=== PATIENT | female | born 1955 | race Caucasian/White ===

== ENCOUNTER 2017-11-12 11:04 | Emergency (ER) | payer OTHER, SELFPAY ==
[2017-11-12 11:12] VITALS: BP 169/92; PULSE 60; RESP 20; TEMP 36.4; O2SAT 98; BMI 26.6
[2017-11-12 11:13] VITALS: BP 169/92; PULSE 60; RESP 15; TEMP 36.4; O2SAT 98
[2017-11-12 12:06] VITALS: BP 131/74; PULSE 62; RESP 21; O2SAT 100
--- NOTE | 2017-11-12 12:37 | RT ---
Spoke with Nurse Masha and Abby about tardiness of EKG, as I did not get a call for EKG. Saw EKG order on [facility]. EKG done at 1228, given to WILFRED Lee
[2017-11-12] MEDS: SODIUM CHLORIDE 0.9% 1,000 ML 1000 ML IV (12:40)
[2017-11-12] MEDS: ONDANSETRON 4 MG/2 ML INJ IV (12:40)
[2017-11-12 12:54] LABS: Add Manual Diff / Slide Review NO; Basophils Percent Auto 0.7 % (0-2); Eosinophils Percent Auto 2.8 % (2-4); Hematocrit 40.2 % (36-46); Hemoglobin 13.8 g/dL (12.0-16.0); Lymphocytes Percent Auto 30.7 % (25-40); Mean Corpuscular HGB Conc 34.2 % (30-36); Mean Corpuscular Volume 96.3 fL (80-100); Monocytes Percent Auto 6.3 % (3-14); Neutrophils Absolute Auto 2700 /uL (3000-5900); Neutrophils Percent Auto 59.5 % (50-75); Platelet Count 209 X10^3/uL (150-400); Red Blood Cell Count 4.18 X10^6/uL (4.0-5.2); Red Cell Distribution Width 12.9 % (11.6-14.8); White Blood Cell Count 4.5 X10^3/uL (4.5-11.0)
[2017-11-12 13:00] LABS: Alanine Aminotransferase 26 IU/L (9-52); Albumin 4.4 g/dL (3.5-5.0); Albumin Globulin Ratio 1.7 (1.0-2.8); Alkaline Phosphatase 74 U/L (38-126); Aspartate Aminotransferase 25 IU/L (14-36); Bilirubin Total 0.6 mg/dL (0.2-1.3); Blood Urea Nitrogen 20 mg/dL (7-17); Calcium 9.5 mg/dL (8.4-10.2); Carbon Dioxide 28 mmol/L (22-32); Chloride 103 mmol/L (98-107); Creatine Kinase 64 U/L (30-135); Estimated Glomerular Filt Rate > 60.0 mL/min (>60); Globulin 2.6 g/dL (1.7-4.1); Glucose 130 mg/dL (80-110); HEMOLYSIS < 15 (0-50); Potassium 4.3 mmol/L (3.4-5.1); Sodium 140 mmol/L (137-145)
[2017-11-12 13:12] LABS: Troponin I < 0.012 ng/mL (0.01-0.034)
[2017-11-12 13:23] VITALS: BP 138/74; PULSE 57; RESP 16; O2SAT 100
[2017-11-12 14:14] VITALS: BP 131/73; PULSE 62; RESP 19; O2SAT 95
--- NOTE | 2017-11-12 14:30 | ED.HA ---
HPI - Headache General Chief Complaint: Headache Stated Complaint: Faint, headache Time Seen by Provider: 11/12/17 12:39 Source: patient and family Mode of arrival: ambulatory Limitations: no limitations History of Present Illness HPI Narrative: Patient states she was sitting at the computer this morning, when she began to feel faint. Patient states this is very unusual for her, and that she is generally strong and healthy. Patient's states that the patient ?never gets sick?. She has horses and cares for them on a daily basis. Patient states that after onset of symptoms, she tried to get up from the computer but felt as though she would faint if she did and so she sat back down. Patient was ultimately able to get up and get something to eat and lay on the couch. Patient's became concerned when the patient had not joined him outside to take care of the horses after a number of minutes went by, and he came in to check on her, and found her laying on the couch. Patient states she developed a headache at that point in time. She states the headache was generalized. At this point, the decision was made to come to the emergency department. Patient states that her father and brother had MIs, but that she has never been found to have any cardiac disease. She states her mother did not have coronary artery disease as far she knows. Patient denies any chest pain or shortness of breath with exertion. No recent illness. No nausea, vomiting, diaphoresis, urinary symptoms, diarrhea, cough, or fever. Patient states that now, she is feeling much better, and no longer has any lightheadedness. She does note a mild headache. No focal neurologic deficits at any time. Onset description: gradual Location: diffuse Severity: moderate Severity scale (1-10): 4 Quality: throbbing and other (Patient states she does not really get headaches usually.) Relieving factors: nothing Exacerbating factors: none Context: occurred at rest Associated symptoms: lightheadedness Other symptoms: other (None) Treatments prior to arrival: none Related Data Home Medications Medication Instructions Recorded Confirmed multivitamin [Multiple Vitamins] 1 tab PO QDAY #0 12/03/16 11/12/17 Estroven 1 dose PO DIRECTED 11/12/17 11/12/17 Tums 1 tab PO DAILY 11/12/17 11/12/17 Vitamin D3 1 tab PO DAILY 11/12/17 11/12/17 biotin 1 tab PO DAILY 11/12/17 11/12/17 naproxen sodium [Aleve] 1 tab PO PRN PRN 11/12/17 11/12/17 Allergies Allergy/AdvReac Type Severity Reaction Status Date / Time No Known Allergies Allergy Uncoded 05/22/17 11:48 Review of Systems Review of Systems All systems reviewed & are unremarkable except as noted in HPI and below Constitutional Denies chills, Denies fever(s), Reports headache(s), Denies lethargy and Denies weakness Comments: Lightheadedness Eyes Denies change in vision, Denies eye discharge, Denies irritation and Denies loss of vision ENT Ears, Nose, Mouth, and Throat: Denies change in voice, Reports headache(s), Denies neck pain and Denies sore throat Cardiovascular Denies chest pain, Denies irregular heart rhythm, Reports lightheadedness, Denies palpitations, Denies dyspnea, Denies dyspnea on exertion and Denies orthopnea Respiratory Denies cough, Denies dyspnea, Denies dyspnea on exertion and Denies wheezing Gastrointestinal Gastrointestinal: Denies abdominal pain, Denies change in bowel habits, Denies diarrhea, Denies nausea and Denies vomiting Genitourinary Denies hematuria, Denies flank pain, Denies urinary incontinence and Denies urinary urgency Musculoskeletal Denies neck pain Integumentary/Breasts Denies pruritus, Denies erythema, Denies rash and Denies wounds Neurologic Denies confusion, Reports headache(s), Denies loss of vision and Denies weakness Psychiatric Denies anxiety, Denies confusion, Denies depression, Denies homicidal ideation and Denies suicidal ideation Endocrine Denies palpitations Hematologic/Lymphatic Denies easy bruising Allergic/Immunologic Denies wheezing PFSH Medical History Healthy adult (Acute) Surgical History No pertinent past surgical history (Acute) Social History Smoking Status: Never smoker Exam Initial Vital Signs Initial Vital Signs: Vital Signs Temperature 97.5 F L 11/12/17 11:12 Pulse Rate 60 11/12/17 11:12 Respiratory Rate 20 11/12/17 11:12 Blood Pressure 169/92 H 11/12/17 11:12 Pulse Oximetry 98 11/12/17 11:12 Const General: cooperative and well developed Nutritional Appearance: well nourished Orientation: alert, awake, oriented x3 and not confused [facility] Head: normocephalic and atraumatic Ears: external ears normal Nose: external nose normal and No nasal discharge Face and sinus: face symmetric and No dry mucous membranes Mouth: oral mucosae normal and moist mucous membranes Teeth and gingiva: dentition normal Eyes General: appearance normal, both eyes and all related structures Eyelids: eyelids normal Conjunctivae: conjunctivae normal Sclera: sclerae normal Pupils: PERRL EOM: EOM intact bilaterally Neck Neck: normal visual inspection, trachea midline, No lymphadenopathy, No midline deformity and No JVD Lymphatic: No lymphedema Chest Chest: normal inspection of the chest Resp Effort & Inspection: normal respiratory effort, able to speak in complete sentences, no respiratory distress and no use of accessory muscles Auscultation: clear to auscultation bilaterally, no rales, no rhonchi and no wheezes Cardio Rate: regular rate Rhythm: regular rhythm Heart Sounds: no click, no gallops, no murmurs and no rubs Pulses: normal peripheral pulses GI Inspection: non-distended Palpation: soft, no hepatosplenomegaly, No guarding, No pulsatile mass and No tender Auscultation: normal bowel sounds Back/Spine/Pelvis Back: No CVA tenderness Cervical Spine: cervical ROM normal and No pain with cervical ROM Thoracic/Lumbar Spine: thoracic and lumbar spine normal to inspection Skin General: no rashes or lesions noted, No jaundice and No petechiae Neuro General: alert, oriented x3, gait normal and no focal motor deficits Speech: speech normal Extrem General: full ROM, no clubbing, cyanosis or edema, no pedal edema and no calf tenderness Psych Appearance: well kempt Mental Status: mental status grossly normal Attitude: cooperative Thought Content: normal and suicidality Judgment: judgment good Course Course Narrative: Patient was treated with IV fluids and worked up with laboratory studies and EKG, which were unremarkable other than a mildly elevated TSH. This had been added after the patient mentioned late in the visit that she had had a short period of hypothyroidism, after which her TSH had normalized. As such, she has not been on medication for years. She has not had her thyroid checked recently, however so I did tell her that I would add a TSH to the blood that is already in the lab. Patient requested to be able to go home and have her primary care physician follow up on the results of the TSH, which I felt was reasonable. I did discuss with the patient the importance of following up for stress test, given the family history she has. The patient herself, other than age, is quite low risk for coronary artery disease, but her family history does increase her her risk somewhat. Patient expresses understanding of the need for follow-up, and states she will see her primary care physician as soon as possible. Orders Ordered: Discontinued Medications Sodium Chloride (Normal Saline 0.9%) 1,000 mls @ 1,000 mls/hr IV BOLUS ONE Stop: 11/12/17 13:38 Last Infusion: 11/12/17 14:26 Dose: 0 mls/hr Admin: 11/12/17 12:40 Dose: 1,000 mls/hr Ondansetron HCl (Zofran) 4 mg IV NOW ONE Stop: 11/12/17 12:40 Last Admin: 11/12/17 12:40 Dose: 4 mg Vital Signs - 8 hr 11/12/17 11:12 11/12/17 11:13 11/12/17 12:06 Temperature 97.5 F L 97.5 F L Pulse Rate 60 60 62 Respiratory Rate 20 15 21 Blood Pressure 169/92 H Blood Pressure [Right Arm] 169/92 H 131/74 Pulse Oximetry 98 98 100 11/12/17 13:23 11/12/17 14:14 Temperature Pulse Rate 57 L 62 Respiratory Rate 16 19 Blood Pressure Blood Pressure [Right Arm] 138/74 131/73 Pulse Oximetry 100 95 MDM - Headache Medical Records Attestation: I reviewed the patient's medical records. Lab Data Attestation: I reviewed the patient's lab results. Result diagrams: 11/12/17 12:20 11/12/17 12:20 Lab Results 11/12/17 11/12/17 11/12/17 Range/Units 12:20 12:20 12:20 WBC 4.5 (4.5-11.0) X10^3/uL RBC 4.18 (4.0-5.2) X10^6/uL Hgb 13.8 (12.0-16.0) g/dL Hct 40.2 (36-46) % MCV 96.3 (80-100) fL MCH 33.0 (26-34) PG MCHC 34.2 (30-36) % RDW 12.9 (11.6-14.8) % Plt Count 209 (150-400) X10^3/uL Neut % (Auto) 59.5 (50-75) % Lymph % (Auto) 30.7 (25-40) % [place] % (Auto) 6.3 (3-14) % Eos % (Auto) 2.8 (2-4) % Baso % (Auto) 0.7 (0-2) % Neut # (Auto) 2700 L (6727-4614) /uL Sodium 140 (137-145) mmol/L Potassium 4.3 (3.4-5.1) mmol/L Chloride 103 (98-107) mmol/L Carbon Dioxide 28 (22-32) mmol/L BUN 20 H (7-17) mg/dL Creatinine 0.80 (0.52-1.04) mg/dL Estimated GFR > 60.0 (>60) mL/min BUN/Creatinine Ratio 25.0 H (6-22) Glucose 130 H (80-110) mg/dL Calcium 9.5 (8.4-10.2) mg/dL Total Bilirubin 0.6 (0.2-1.3) mg/dL AST 25 (14-36) IU/L ALT 26 (9-52) IU/L Alkaline Phosphatase 74 (38-126) U/L Total Creatine Kinase 64 (30-135) U/L CK-MB (CK-2) TNP CK-MB (CK-2) Rel Index TNP Troponin I < 0.012 (0.01-0.034) ng/mL Total Protein 7.0 (6.3-8.2) g/dL Albumin 4.4 (3.5-5.0) g/dL Globulin 2.6 (1.7-4.1) g/dL Albumin/Globulin Ratio 1.7 (1.0-2.8) TSH 5.66 H (0.47-4.68) uIU/mL ECG Data Attestation: I personally reviewed and interpreted this ECG as follows: (See below) Interpretation: Twelve lead EKG performed on November 12, 2017 at 11:12 a.m.. Regular ventricular rhythm with a rate of 59 beats per minute MS interval 139 milliseconds QRS duration 92 milliseconds QTC interval 424 milliseconds No ectopy Interpretation: Sinus bradycardia; borderline EKG as interpreted by the ED MD Discharge Plan Departure Patient Disposition: Home Clinical Impression: Near syncope, Headache Discharge Date/Time: 11/12/17 14:50 Interventions: ED Discharge Assessment Last Done: 11/12/17 14:49 Prescriptions: No Action multivitamin [Multiple Vitamins] 1 EACH tablet 1 tab PO QDAY Qty: 0 RF: 0 naproxen sodium [Aleve] 220 mg Tablet 1 tab PO PRN PRN (Reason: Back Pain) RF: 0 biotin 1,000 mcg Tablet,Chewable 1 tab PO DAILY RF: 0 Estroven 1 dose PO DIRECTED RF: 0 Vitamin D3 1 tab PO DAILY RF: 0 Tums 1 tab PO DAILY RF: 0 Referrals: Hernandez Aj MD [Primary Care Provider] -
[2017-11-12 15:18] LABS: Thyroid Stimulating Hormone 5.66 uIU/mL (0.47-4.68)
== END 2017-11-12 14:50 | disposition home or self-care (01) ==
PROVIDERS: Emergency Provider Emergency Medicine; Family Provider Family Medicine; PCP Family Medicine
DX: R55 Syncope and collapse (principal); R51 Headache
CPT/HCPCS: 36591; 80053; 82550; 84443; 84484; 85025; 93005; 96361; 96374; 99283; 99284; J2405

== ENCOUNTER → 2020-10-12 13:37 | Outpatient (CLI) | payer MEDICARE, OTHER, SELFPAY ==
--- NOTE | 2020-10-12 | DI.MRI.S_ITS ---
PROCEDURE: MR LUMBAR SPINE WO CON INDICATIONS: Spondylolisthesis lumbar region TECHNIQUE: Noncontrast sagittal T1 spin echo and T2 fast echo, sagittal STIR, axial T1 and T2 fast spin echo through the lumbar spine. In cases with scoliosis, additional coronal T2 fast spin echo may be performed. COMPARISON: [facility] [place], CR, XR LUMBAR SPINE WITH OLBIQUES PLUS FLEXION EXTENSION, 10/03/2020, 10:10. [facility] [place], MR, MR LUMBAR SPINE WO CON, 06/21/2015, 13:02. [facility] [place], MR, MR LUMBAR SPINE W&WO CON, 09/28/2016, 13:14. FINDINGS: Image quality: Excellent. Alignment and Curvature: There is normal bony alignment. Mild grade 1 anterolisthesis is seen at L4-L5. Bone Marrow: Marrow is of normal overall signal. No acute vertebral body compression fractures. Spinal Cord: Conus medullaris terminates at the L1 level. Visualized cord demonstrates normal signal and size. Paraspinous Soft Tissues: No paravertebral masses. T12-L1: Normal appearance. L1-L2: Moderate to severe loss of disc height and disc signal can be seen on the right side. Prominent endplate irregularity is seen. At least moderate facet hypertrophy is seen. Associated hypertrophy of the ligamentum flavum can be seen. There is moderate to severe bilateral neural foraminal narrowing seen, right worse than left. There is a degree of compression seen upon the exiting nerve roots. Moderate central canal narrowing is seen. These imaging findings have progressed compared to the prior study. L2-L3: At least moderate loss of disc height and disc signal can be seen, which is worst on the left. Moderate to prominent disc bulge is seen. At least moderate facet hypertrophy is seen. Prior right hemilaminectomy change can be seen. There is moderate to severe bilateral neural foraminal narrowing seen. There is a degree of compression seen upon the exiting nerve roots. Mild central canal narrowing is seen. The degenerative changes at this level are overall progressed compared to 2017. L3-L4: [id number] loss of disc height and disc signal can be seen on the left side. Mild to moderate disc bulge is seen, with a mild central disc protrusion. Prominent facet hypertrophy is seen. Prior right hemilaminectomy change is seen at this level. There is at least moderate right-sided and moderate to severe left-sided neural foraminal narrowing seen. Moderate central canal narrowing is seen. When comparison is made with the prior images, these findings are similar. L4-L5: Mild loss of disc height is seen. Loss of disc signal is seen. Postoperative changes are seen at this level, with right-sided pedicle screws and a vertical fixation roni. There is a disc spacer seen. Mild disc bulge is seen. Prominent facet hypertrophy is seen at this level. Apparent prior right hemilaminectomy change can be seen. There is moderate right-sided and [id number] left-sided neural foraminal narrowing seen. Moderate central canal narrowing is seen. When comparison is made with the prior images, these findings are similar. L5-S1: Moderate to severe loss of disc height is seen. There is a likely degree of vertebral body bridging seen anteriorly. Mild to moderate disc bulge is seen. Mild to moderate facet hypertrophy is seen. No significant neural foraminal or central canal narrowing can be seen. Stable from the prior study. IMPRESSION: Multiple levels of degenerative change are seen, which are worst at L1-L2 and L2-L3 compared to 2017. Multiple levels of postoperative change can be seen, with multiple levels of right hemilaminectomy. Fusion hardware can be seen at L4-L5. Dictated by: Michael Ang M.D. on 10/12/2020 at 15:42 Approved by: Michael Ang M.D. on 10/12/2020 at 15:51
== END ==
PROVIDERS: Family Provider Family Medicine; PCP Family Medicine; Referring Provider Physical Medicine & Rehabilitation Pain Medicine; Visit Provider Physical Medicine & Rehabilitation Pain Medicine
DX: M43.16 Spondylolisthesis, lumbar region (principal); M47.816 Spondylosis without myelopathy or radiculopathy, lumbar region; M47.817 Spondylosis without myelopathy or radiculopathy, lumbosacral region
CPT/HCPCS: 72148

== ENCOUNTER → 2021-02-09 13:50 | Outpatient (CLI) | payer MEDICARE, OTHER, SELFPAY ==
--- NOTE | 2021-02-09 | DI.MRI.S_ITS ---
PROCEDURE: MR HIP LT WO CON INDICATIONS: Unilateral primary osteoarthritis, left hip TECHNIQUE: Noncontrast coronal T1 spin echo and STIR through the bony pelvis. Coronal and axial T2 fast spin echo with fat saturation, sagittal T1 spin echo, and oblique axial T2 fast spin echo with fat saturation through the hip. COMPARISON: None. FINDINGS: Image quality: Degraded by right hip arthroplasty artifact. Bones and joints: Moderate left hip joint space narrowing and periarticular osteophyte formation. Small left hip joint effusion. Bone marrow of the pelvic ring and proximal femurs show normal signal throughout. No intraosseous lesions or fractures. No avascular necrosis of the femoral heads. The visualized lower lumbar spine appears normally aligned. Tendons and ligaments: The gluteus medius and minimus tendons appear intact, without associated muscle atrophy. Mild T2 signal elevation within and surrounding the femoral insertion of the left gluteus medius and minimus tendons. The nearby proximal iliotibial band also appears intact. The iliopsoas tendon appears intact, without adjacent bursal fluid collections or evidence for impingement syndrome. The origin of the hamstring tendon is intact at the ischial tuberosity, as well as the associated sacrotuberous ligament. The straight and reflected heads of the rectus femoris muscle origin appear intact. Mild T2 signal elevation within the conjoined tendon origin at the ischial tuberosity. The ligamentum teres appears intact where visualized. Labrum and cartilage: Diffuse tearing of the left hip labrum is present. There is a large paralabral cyst superiorly measuring roughly 23 mm transverse by 60 mm anteroposterior by 40 mm craniocaudal. Cartilage surface of the femoral head appears of normal thickness. The alpha angle of the femur is within normal limits at less than 55 degrees. Soft tissues: Visualized muscles demonstrate normal bulk and internal signal. Quadratus femoris muscle demonstrates no internal edema to suggest ischiofemoral impingement. The proximal sciatic neurovascular bundle appears normal adjacent to the hamstring tendons. No free pelvic fluid. Bladder wall thickness is normal. There are multiple uterine masses, largest of which is in the subserosal location on the right measuring roughly 40 mm diameter. Scattered low T2 intensity foci within the uterine parenchyma are present. There is a right adnexal cyst measuring roughly 49 mm diameter. IMPRESSION: 1. Left hip osteoarthritis with associated labral tearing and paralabral cyst. 2. Insertional tendinitis of the left gluteus medius and minimus tendon . 3. Mild left ischiitis. 4. Multiple uterine fibroids. 5. Right adnexal cyst. Initial further assessment with pelvic ultrasound is recommended. Dictated by: Magalis Benavides M.D. on 02/09/2021 at 14:52 Approved by: Magalis Benavides M.D. on 02/09/2021 at 14:59
== END ==
PROVIDERS: Family Provider Family Medicine; PCP Family Medicine; Referring Provider Physical Medicine & Rehabilitation Pain Medicine; Visit Provider Physical Medicine & Rehabilitation Pain Medicine
DX: M16.12 Unilateral primary osteoarthritis, left hip (principal); M76.02 Gluteal tendinitis, left hip; S73.102A Unspecified sprain of left hip, initial encounter; D25.2 Subserosal leiomyoma of uterus; N94.89 Other specified conditions associated with female genital organs and menstrual cycle; Z96.642 Presence of left artificial hip joint
CPT/HCPCS: 73721

== ENCOUNTER → 2021-03-10 08:34 | Outpatient (CLI) | payer MEDICARE, OTHER, SELFPAY ==
[2021-03-10 09:29] LABS: Add Manual Diff / Slide Review NO; Basophils Absolute Auto 0 /uL (0-100); Eosinophils Absolute Auto 200 /uL (0-450); Eosinophils Percent Auto 3.7 % (2-4); Hematocrit 39.5 % (36-46); Hemoglobin 13.5 g/dL (12.0-16.0); Lymphocytes Absolute Auto 1800 /uL (1100-4500); Mean Corpuscular HGB Conc 34.1 % (30-36); Mean Corpuscular Hemoglobin 33.1 PG (26-34); Mean Corpuscular Volume 97.2 fL (80-100); Monocytes Absolute Auto 400 /uL (0-900); Monocytes Percent Auto 8.4 % (3-14); Neutrophils Absolute Auto 2500 /uL (1500-7000); Neutrophils Percent Auto 50.9 % (50-75); Platelet Count 238 X10^3/uL (150-400); Red Blood Cell Count 4.07 X10^6/uL (4.0-5.2); Red Cell Distribution Width 12.4 % (11.6-14.8); White Blood Cell Count 4.9 X10^3/uL (4.5-11.0)
[2021-03-10 09:32] LABS: Hemoglobin A1C% w Est Avg Glu 5.4 % (4.0-6.0)
[2021-03-10 09:36] LABS: Blood Urea Nitrogen 26 mg/dL (7-17); Calcium 9.3 mg/dL (8.4-10.2); Carbon Dioxide 28 mmol/L (22-32); Chloride 107 mmol/L (98-107); Estimated Glomerular Filt Rate > 60.0 mL/min (>60); Glucose 95 mg/dL (80-110); HEMOLYSIS < 15 (0-50); Potassium 4.2 mmol/L (3.4-5.1); Sodium 138 mmol/L (137-145)
[2021-03-10 10:31] LABS: Appearance Urine UA CLEAR; Bilirubin Urine UA NEGATIVE (NEGATIVE); Color Urine UA YELLOW; Glucose Urine UA NEGATIVE (Negative); Ketones Urine UA NEGATIVE (NEGATIVE); Leukocyte Esterase Urine UA NEGATIVE (NEGATIVE); Nitrite Urine UA NEGATIVE (Negative); Occult Blood Urine UA TRACE-INTACT (Negative); Protein Urine UA NEGATIVE (Negative); Specific Gravity Urine UA 1.025 (1.000-1.035); Urobilinogen Urine UA 0.2 E.U./dL (0.2)
[2021-03-10 10:47] LABS: Bacteria Urine Many (>30); RBC Urine 0-1/HPF (0-5/HPF); Squamous Epithelial Cell Urine 1-5 /HPF (0-5/HPF); WBC Urine 5-10/HPF (0-5/HPF)
[2021-03-10 10:48] LABS: Culture Indicated Urine Specimen Cultured
== END ==
PROVIDERS: Family Provider Family Medicine; PCP Family Medicine; Referring Provider Orthopaedic Surgery; Visit Provider Orthopaedic Surgery
DX: Z01.818 Encounter for other preprocedural examination (principal); R73.9 Hyperglycemia, unspecified; Z01.812 Encounter for preprocedural laboratory examination; N39.0 Urinary tract infection, site not specified
CPT/HCPCS: 36415; 80048; 81001; 83036; 85025; 87077; 87086; 87186; 93005; 94060; 94726; 94729

== ENCOUNTER → 2021-03-13 07:40 | Outpatient (CLI) | payer MEDICARE, OTHER, SELFPAY ==
--- NOTE | 2021-03-13 | DI.US.S_ITS ---
PROCEDURE: US PELVIC COMPLETE INDICATIONS: RIGHT OVARIAN CYST TECHNIQUE: Real-time scanning was performed of the pelvic organs, with image documentation. Additional endovaginal scanning was necessary due to incomplete visualization of the adnexal and endometrial structures by transabdominal scanning. COMPARISON: [facility], US, US PELVIC+TRANSVAG, 10/06/2014, 12:56. FINDINGS: Uterus: Uterus is anteverted and normal in size at 10 x 6.8 x 4.6 cm. The endometrium measures 11.6 mm combined thickness. There is a right anterior subserosal fibroid seen that measures 3.8 x 3 9 cm. Ovaries: The right ovary measures 5 x 5.3 x 3.8 cm. There is either a right ovarian cyst or a right adnexal cyst that measures 4.6 x 1 cm. No suspicious features are seen. The left ovary is not well seen Other: No pathologic free abdominal or pelvic fluid. IMPRESSION: The endometrial stripe is abnormally thickened at 11.6 mm. Please consider endometrial hyperplasia versus endometrial neoplasm. Please correlate with postmenopausal bleeding. If clinically appropriate, please consider endometrial sampling. A right ovarian versus right adnexal cyst is seen that measures up to 5.1 cm. In a patient of this age, suspicion is raised for an indolent cystic neoplasm. 3.9 cm uterine fibroid seen, which measures slightly decreased in size compared to 2014. We strive to produce accurate, complete, and clear reports of imaging services. To assist us in improving patient care, this report was composed using standard report templates and voice recognition software. Therefore, it may contain abnormal punctuation, insertions and/or omissions. Occasional wrong-word or sound-alike substitutions may occur. Though we review the report and make efforts to correct it, we do recommend that the report be read carefully in proper context to recognize any text inaccuracies. Dictated by: Michael Ang M.D. on 03/13/2021 at 8:11 Approved by: Michael Ang M.D. on 03/13/2021 at 8:14
== END ==
PROVIDERS: Family Provider Family Medicine; PCP Family Medicine; Referring Provider Family Medicine; Visit Provider Family Medicine
DX: N83.201 Unspecified ovarian cyst, right side (principal); D25.2 Subserosal leiomyoma of uterus; R93.89 Abnormal findings on diagnostic imaging of other specified body structures
CPT/HCPCS: 76830; 76856

== ENCOUNTER → 2021-03-30 14:55 | Outpatient (CLI) | payer MEDICARE, OTHER, SELFPAY ==
[2021-03-30 17:57] LABS: Cancer Antigen 125 10.4 U/mL (0-35)
[2021-04-01 09:40] LABS: Human Epididymis Prot 4 67.8 pmol/L (0.0-96.5)
== END ==
PROVIDERS: Family Provider Family Medicine; PCP Family Medicine; Referring Provider Specialist; Visit Provider Specialist
DX: N83.201 Unspecified ovarian cyst, right side (principal)
CPT/HCPCS: 36415; 86304; 86305

== ENCOUNTER → 2021-05-08 09:57 | Outpatient (CLI) | payer MEDICARE, OTHER, SELFPAY ==
[2021-05-08 11:37] LABS: COVID19 -Nasal RAPID Negative (Negative)
== END ==
PROVIDERS: Family Provider Family Medicine; PCP Family Medicine; Visit Provider Family Medicine Sleep Medicine
DX: Z20.822 Contact with and (suspected) exposure to COVID-19 (principal)
CPT/HCPCS: 87635; C9803

== ENCOUNTER 2021-05-09 11:25 | Day surgery (SDC) | payer MEDICARE, OTHER, SELFPAY ==
[2021-05-02 12:46] VITALS: BMI 27.1
[2021-05-09] VITALS (15 sets, daily range): BP systolic 121–146; BP diastolic 65–94; PULSE 66–88; RESP 12–18; TEMP 36.1–36.9; O2SAT 95–100; BMI 27.1
--- NOTE | 2021-05-09 | DI.RAD.S_ITS ---
PROCEDURE: XR HIP W PEL IF DONE LT 2V INDICATIONS: Left Anterior Hip TECHNIQUE: Four intraoperative fluoroscopic spot view(s) of the hip acquired. COMPARISON: [facility], , HIP 2V RIGHT, 07/14/2006, 9:52. FINDINGS: Four intraoperative spot images demonstrate left hip arthroplasty hardware in expected location without unexpected fractures visible. IMPRESSION: 1. Expected intraoperative appearance of left hip arthroplasty. Dictated by: Umu Willis M.D. on 05/09/2021 at 17:51 Approved by: Umu Willis M.D. on 05/09/2021 at 17:52
--- NOTE | 2021-05-09 06:00 | DI.RAD.S_ITS ---
PROCEDURE: XR HIP W PEL IF DONE LT 2V INDICATIONS: XI TECHNIQUE: AP pelvis and lateral view of the left hip acquired. COMPARISON: [facility], [facility], XR HIP W PEL IF DONE LT 2V, 05/09/2021, 16:24. FINDINGS: Bones: Patient is status post left hip arthroplasty, with hardware components in expected positions. The hip joint appears congruent. The visualized bony structures appear intact. Pre-existing right hip arthroplasty hardware can be seen. Soft tissues: Overlying postoperative changes are noted. No suspicious soft tissue densities. IMPRESSION: Normal postoperative examination. Dictated by: Michael Ang M.D. on 05/09/2021 at 17:08 Approved by: Michael Ang M.D. on 05/09/2021 at 17:08
[2021-05-09] MEDS: ACETAMINOPHEN 325 MG TABLET 975 MG PO (11:50)
[2021-05-09] MEDS: CELECOXIB 200 MG CAPSULE PO (11:51)
[2021-05-09] MEDS: LACTATED RINGERS 1,000 ML 42 ML IV ×2 (11:53→16:31)
[2021-05-09] MEDS: VANCOMYCIN 1,000 MG/200 ML PIGGYBACK 200 MG IV (13:07)
--- NOTE | 2021-05-09 14:03 | PM.PREOP ---
Pre-operative Note COVID-19 COVID-19 status: Negative Interval Note History & Physical reviewed/Exam performed by Physician: Yes Changes to H&P: No
[2021-05-09] MEDS: CEFAZOLIN 2 GM/20 ML SYRINGE IV ×2 (14:25→20:09)
[2021-05-09] MEDS: TRANEXAMIC ACID 1,000 MG VIAL 2000 MG INJ ×2 (14:45→17:11)
--- NOTE | 2021-05-09 15:01 | SUR.OPER ---
Patient supine on padded [place] table, one arm on padded arm board at <90, other arm padded and secured with tape across patient's chest, both legs secured in padded traction boots and positioned per surgeon, padded post at patient's groin, pressure points checked and padded.
[2021-05-09] MEDS: BUPIVACAINE LIPOSOME 266 MG/20 ML VIAL INJ (15:07)
[2021-05-09] MEDS: BUPIVACAINE 0.25% (PF) 60 ML, EPINEPHrine 0.3 MG INJ (15:07)
[2021-05-09] MEDS: SODIUM CHLORIDE IRRIG SOLUTION 250 ML, POVIDONE-IODINE SPONGE STICKS 1 APPLIC IRR (15:08)
[2021-05-09] MEDS: HYDROMORPHONE 2 MG INJ IV ×4 (18:02→18:29)
[2021-05-09] MEDS: OXYCODONE/ACETAMINOPHEN 5/325 TABLET 1 TAB PO ×2 (18:03→18:27)
[2021-05-09] MEDS: ONDANSETRON 4 MG/2 ML INJ IV (18:31)
--- NOTE | 2021-05-09 18:45 | P.OP_ITS ---
Operative Date/Time/Diagnoses Date of procedure: 05/09/21 Time of procedure: 14:30 Pre-op diagnosis: left hip OA/AVN Post-op diagnosis: same Procedure & Clinicians Procedure: Left total hip arthroplasty anterior approach Same procedure as scheduled: Yes Indications: The patient has had progressively worsening left hip pain with radiographic changes consistent with arthritis. Non-operative management has failed and the patient has requested total hip replacement. The risks, benefits and alternatives to surgery were discussed with the patient prior to proceeding. Risks discussed included, but were not limited to, failure to relieve pain, leg length discrepancy, dislocation, stiffness, infection, nerve damage, deep venous thrombosis, pulmonary embolism, stroke, coma, heart attack, permanent paralysis and , as well as the potential need for eventual revision of the prosthetic. Surgeon: Cassie Antunez Chucking Machine Set Up Operator: Deidre Ambrose Anesthesia Type: Spinal Operative Notes Findings: severe left hip osteoarthritis Closure Type: primary Specimen(s): none sent Prosthetic devices, grafts, tissues, transplants, or devices: Antunez and nephew R3 52 mm cup, two 6.5 mm cancellous screws, neutral poly liner, size 7 standard offset anthology stem, 36 x -3 Oxinium head Applied: drain(s) Estimated Blood Loss (mL): 250 Blood products transfused: none Procedure in detail: The patient was brought to the operating room. Patient was carefully positioned in the supine position. Time-out was performed and antibiotics were given. Anesthesia was induced. She was positioned in the on the table in order to allow hyperextension of the hip. The left lower extremity was prepped and draped in a standard sterile fashion. An anterior left hip incision was made 1 fingerbreadth lateral to the anterior superior iliac spine and extended distally towards the greater trochanter. Dissection was carried out through skin and subcutaneous tissues. Superficial hemostasis was achieved. The fascia over the tensor fascia savage was defined and incised with a knife. Two Allis clamps were used to grasp the fascia. Tensor fascia savage was retracted laterally. A gelpi retractor was placed. Dissection was carried out down along the neck. The circumflex vessels were carefully identified and cauterized with the Aqua Mantis. There was good visualization of the femoral neck. A Cobra was placed superior to the neck and the gluteus fibers were carefully stripped from that superior aspect of the capsule. A 2nd retractor was placed along the inferior aspect of the neck. The rectus insertion along the capsule was partially released. A 3rd retractor that was then gently placed over the rim of the acetabulum under the rectus. Capsule was carefully incised and released from the intertrochanteric line circumferentially superior to the mid sagittal line and inferiorly to the mid sagittal line until the lesser trochanter was palpable. A tag stitch was placed both in the superior and inferior limb of the capsular insertion. Along the acetabulum capsule was also released up to the mid sagittal 12:00 position. A portion of the labrum was resected. A saw was used to perform an osteotomy at the level of the intertrochanteric line and the junction of the superior femoral neck leaving approximately 1 finger breath of residual inferior neck above the lesser trochanter. A 2nd cut was made along the femoral neck at the base of the head and a napkin ring of neck was removed. Corkscrew was placed in the femoral head and the head was removed without difficulty. Retractors were then repositioned around the acetabulum. Residual labrum was resected and additional osteophytes were removed. A reamer that was 4 mm below the templated size was placed by hand in the acetabulum and it was reamed to centralize the acetabulum. It was then reamed up to 2 under the templated size and fluoroscopy was brought in to confirm the position of the reaming and depth of reaming. I reamed 1 under the anticipated size. A trial cup was placed and noted that it was appropriately sized and fluoroscopy confirmed position and depth. The component was open and inserted without difficulty fluoroscopic imaging was used to confirm that the cup had been adequately seated and was well positioned. It was stabilized with 2 screws. She had a fairly soft acetabulum. Neutral poly liner was placed. The cup was tested and noted to be stable. Attention was then directed to the femur. The femur was gently hyperextended additional capsular release was performed as needed in order to allow adequate visualization of the proximal femur with elevation of the femur. Patient was placed in a hyperextended slightly adducted position with maximum external rotation. Box osteotome was used to check for any residual neck as well as sclerotic bone along the trochanter. Anthony pepper was placed in the femur. Additional broaching was performed. Canal finder was used to determine the alignment of the canal and position. Size 1 broach was placed. The canal was then appropriately broached up to the templated size as long as there was adequate stability of the broach and serial advancement of the broach without excessive impingement. Specific attention was directed at avoiding varus attempting to direct the distal aspect of the broach more anteriorly and avoiding excessive anteversion. Trial reduction showed acceptable range of motion, good stability, no posterior impingement, sabianist of leg length and appropriate lateral shuck. I also hyperflexed the hip and checked that there was no impingement anteriorly and there was good stability with flexion, adduction and internal rotation. Marcaine and Exparel were injected. The stem was placed without difficulty. Repeat trial reduction and x-ray showed acceptable overall position, length, and no evidence of the femoral fracture. Final head was placed. Wound was meticulously irrigated with normal saline. The hip was reduced and additional Exparel and Marcaine were injected. The capsule was closed with interrupted nonabsorbable sutures. The fascia of the tensor was closed with interrupted and running Vicryl. No drain was placed. Any tensor fascia savage muscle that appeared to be contused or injured which was a minimal amount was carefully resected. Capsule around the tensor was injected with Exparel and Marcaine. The skin was closed with barbed stitches for the subcutaneous tissue and skin. We also used surgical glue. The wound was dressed sterilely. Brief Betadine soak was also used and was meticulously irrigated with normal saline. Patient was transferred to recovery room in satisfactory condition. Complications: none Post-operative Condition: stable Disposition: Acute Care Plan for aftercare: The patient will be maintained on a standard total hip replacement protocol with weight bearing as tolerated and anterior hip precautions. The patient will receive Aspirin and sequential compression devices for DVT prophylaxis. The patient will be discharged home when safe for the home environment.
[2021-05-09] MEDS: LACTATED RINGERS 1,000 ML 125 ML IV (19:28)
--- NOTE | 2021-05-09 19:51 | PC.NURSE ---
Pt to room 211 at 1900 from PACU via bed. Pt is awake, alert, and oriented x 3. Pt's Spouse Jeff is at the bedside. Pt denies pain, nausea, or shortness of breath. Still has numbness to BLE. Scd's on and running. Bed alarm on for safety. Ice water given, Pt denies hunger at this time but is aware that if she would like anything to please let us know. Pt oriented to room, call light, bed controls, and tv controls. Pt agrees to call for assistance as needed and to not get up without help.
[2021-05-09] MEDS: IBUPROFEN 400 MG TABLET PO (20:09)
[2021-05-09] MEDS: ASPIRIN EC 81 MG TABLET PO (20:09)
[2021-05-09] MEDS: DOCUSATE 100 MG CAPSULE PO (20:09)
[2021-05-09] MEDS: ACETAMINOPHEN 325 MG TABLET 650 MG PO (20:09)
[2021-05-10] MEDS: IBUPROFEN 400 MG TABLET PO ×4 (01:01→13:10)
[2021-05-10 01:03] VITALS: BP 130/55; PULSE 79; RESP 14; TEMP 36.4; O2SAT 96
[2021-05-10] MEDS: OXYCODONE IR 5 MG TABLET PO ×3 (04:23→13:11)
[2021-05-10] MEDS: CEFAZOLIN 2 GM/20 ML SYRINGE IV (04:23)
[2021-05-10 04:32] VITALS: BP 117/61; PULSE 71; RESP 14; TEMP 36.9; O2SAT 98
[2021-05-10 05:15] LABS: Hematocrit 30.4 % (36-46); Hemoglobin 10.4 g/dL (12.0-16.0)
[2021-05-10 07:00] VITALS: BP 101/61; PULSE 69; RESP 19; TEMP 36.1; O2SAT 97
[2021-05-10] MEDS: CHOLECALCIFEROL (VITAMIN D3) 1,000 UNIT TABLET 1000 UNIT PO (08:30)
[2021-05-10] MEDS: ASPIRIN EC 81 MG TABLET PO (08:30)
[2021-05-10] MEDS: DOCUSATE 100 MG CAPSULE PO (08:31)
[2021-05-10] MEDS: MULTIVITAMIN 1 TABLET 1 TAB PO (08:31)
[2021-05-10] MEDS: ACETAMINOPHEN 325 MG TABLET 650 MG PO (08:31)
[2021-05-10] MEDS: PROGESTERONE, MICRONIZED 100 MG CAPSULE PO (08:31)
--- NOTE | 2021-05-10 09:26 | CM.DANOTE ---
DCP: Case received, EMR reviewed and met with patient. Introduced self and role. Was able to obtain information regarding patient's baseline activity level prior to her surgery. DCP assessment completed with information currently available. Patient is a 65 year old female who admitted yesterday morning to the care of the orthopedic team. PCP: Dr. Aj. Payer: confirmed: Medicare/[employer]. Patient came to the hospital via private vehicle for a surgical procedure. Patient had left total hip arthroplasty. She has history of unilateral primary osteoarthritis of the left hip. Met with patient in her room. She is pleasant, alert and oriented. She was sitting up in bed. Confirmed that she resides in [place] with her spouse, Jonathan. 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 Confirmed that her spouse will be able to assist her when she goes home. P: Patient has discharge orders for home today, pending working with PCharis Ingram RN/Crew Director Discharge Planning/Care Management CM Discharge Assessment Start: 05/10/21 09:25 Freq: Status: Active Protocol: Document 05/10/21 09:25 (Rec: 05/10/21 09:26 [id number]) Discharge Planning Assessment Assigned Wood Experimental Mechanic Agueda Ingram RN/Crew Director Advance Directives? Yes Advance Directives on File Yes History Provided By Patient,Significant Other, Medical Record Prior Living Arrangements House Household Members spouse Type of transporation used prior to Drives own vehicle admit Independent with ADL's Yes Is patient alert and oriented? Yes Caregiver for Another No Barriers to Discharge No Discharge Plan Home Transportation Arrangement Spouse Referrals Initiated None needed Whiteboard Updated in Patient Room with Yes name and ext. # of Wood Experimental Mechanic Review Status In Process Next Review Type Continued Stay Review Pre-Anesthesia Assessment Start: 05/02/21 12:46 Freq: Status: Active Protocol: Document 05/02/21 12:46 CAB (Rec: 05/02/21 13:14 CAB [id number]) Pre-Anesthesia Assessment Preferred Name Le Patient Information Reviewed Via Phone Assessment Assessment Completed With Patient Diagnostic Results BMP/CMP,CBC,EKG Comment Labs/ECG @ [facility] 03/10/21, COVID screen @ [facility] 05/08/21 Primary Care Provider Hernandez Aj Seen Specialist in Last 12 Months Yes Specialist Seen Fishing Vessel Operator,Orthopedist Primary Language Ghanaian Security Management Specialist Required No Height 5 ft 6 in Weight 168 lb Body Mass Index (BMI) 27.1 Hearing Ability Normal Visual Assist None Dentition Type Teeth, Natural Present Barriers to Learning None Hx Anesthesia Reactions No Hx Family Anesthesia Reaction No Hx Malignant Hyperthermia No Hx Blood Transfusions No Anesthesia Review Requested No alcohol intake current alcohol intake frequency 0-2 drinks per day Smoking Status Never smoker Substance Use Type does not use Pain Present Pain Reported Musculoskeletal Symptoms Abnormal Gait,Difficulty Walking,Joint Pain History of Falling (Recent or History of No ) Patient is completely paralyzed or No completely immobile Mental Status Oriented to own ability Is patient on oxygen? No Does patient have MCMANUS/SOB No Hx Sleep Apnea No Currently Taking a Beta Leeanne No Can You Climb a Flight of Stairs Without Yes SOB Hx Chest Pain No Hx SOB No Hx Syncope or Dizziness No Anti-Coagulant Therapy No Has a Towel Weaver No Cardiac Testing No Hx Pacemaker/ICD No Pacemaker Rep Required? No Cardiac Clearance Received Not Applicable Diet Type At Home Regular dysphagia No Gastrointestinal Symptoms Constipation Genitourinary Symptoms Non-Menses Vaginal Bleeding Urinary Catheter Present No Hx Urinary Self Catheterization No Diabetes No Patient No Lactating No Presence of External or Internal Medical Yes: Lumbar, right hip Devices Have you had any close contact with No someone diagnosed with COVID-19? Received a COVID vaccine? Yes Received all doses? Yes Marital Status Lives With spouse Prior Living Arrangements House Number of Floors (Floors) One Floor Support System Spouse Does the Patient Have Assistance After Yes Surgery Patient Discharge Plan Description Return Home Comment Pt advised possible same day surgery or overnight length of stay per surg Feels Safe in Current Environment Yes Been Physically Hurt or Threatened By a No Person in Current Environment Do you have thoughts of harming yourself None or others? Are you currently considering suicide? No Do you have a plan to hurt yourself or No Plan others? Do You Have Any Spiritual Beliefs That No May Affect Your HC Choices? Do You Have Any Cultural Practices That No May Affect Your HC Choices? Comment Latter Day Who Can We Speak to About Patient's Care Family, friends Identifying Code for Release of Patient Declines to issue Information Health Care Proxy/Next of Kin Jeff () Health Care Proxy Emergency Contact Name Jeff () Emergency Contact Advance Directives? Yes Power of Head Of Training And Development Yes Power of Head Of Training And Development Name Jeff () Power of Head Of Training And Development PAC Instructions Do not shave/clip surgical site,Durable medical equipment ,Medications to take/avoid, Nasal antibiotic,No ETOH/ petroleum product on skin DOS, NPO,Post-op transportation,Pre -surgical wash,Sensory aids, Sturdy shoes/comfortable clothes,Do not bring valuables and remove jewelry
--- NOTE | 2021-05-10 10:19 | P.DS_ITS ---
History of Present Illness History of Present Illness Date Patient Seen: 05/10/21 Time Patient Seen: 07:50 Chief complaint: hip pain Narrative: Doing well. Pain is mild. No fever or chills. Denies N/V. Discharge Providers Provider Discharge Date: 05/10/21 Primary care physician: Hernandez Aj MD Consults: 05/09/21 06:00 Consult to Anesthesiology Routine Comment: Consulting Provider: Anesthesiologist Reason for consultation: Regional block for post operative pain control 05/09/21 19:04 Consult to Discharge Planning Routine Comment: Consult to Physical Therapy Evaluate & Treat Comment: Physician Instructions: post op XI protocol Consult to Respiratory Therapy Evaluate & Treat Comment: Physician Instructions: Evaluate and treat Discharge provider: Armaan Justin PA-C Summary Hospital Course Discharge Diagnosis: Left hip OA/AVN Hospital Course: Procedure: Left total hip arthroplasty anterior approach Same procedure as scheduled: Yes Indications: The patient has had progressively worsening left hip pain with radiographic changes consistent with arthritis. Non-operative management has failed and the patient has requested total hip replacement. The risks, benefits and alternatives to surgery were discussed with the patient prior to proceeding. Risks discussed included, but were not limited to, failure to relieve pain, leg length discrepancy, dislocation, stiffness, infection, nerve damage, deep venous thrombosis, pulmonary embolism, stroke, coma, heart attack, permanent paralysis and , as well as the potential need for eventual revision of the prosthetic. Surgeon: Cassie Antunez Occupational Therapy Co Director: Deidre Ambrose Anesthesia Type: Spinal Operative Notes Findings: ?severe left hip osteoarthritis Closure Type: primary Specimen(s): none sent Prosthetic devices, grafts, tissues, transplants, or devices: Antunez and nephew R3 52 mm cup, two 6.5 mm cancellous screws, neutral poly liner, size 7 standard offset anthology stem, 36 x -3 Oxinium head Applied: drain(s) Estimated Blood Loss (mL): 250 Blood products transfused: none Admitted for left XI. Consented to the same. Underwent total hip, anterior approach on 05/09/21. Doing well s/p surgery. DC home today in stable conditon. Status at Discharge Cognitive/behavioral status at discharge: at baseline, oriented Functional status at discharge: uses cane/walker Overall status at discharge: patient is progressing back to baseline Exam Vital Signs (past 8 hours): - 05/10/21 04:32 05/10/21 07:00 Temperature 98.4 F 97.0 F L Pulse Rate 71 69 Respiratory Rate 14 19 Blood Pressure 117/61 101/61 Pulse Oximetry 98 97 Oxygen Delivery Method Room Air Oxygen Flow Rate 0 Narrative Exam Narrative: 65 yo resting comfortably in bed, NAD. Dressing CDI. Motor function intact bilat. LE, sensation grossly intact to light touch bilat. LE. Const General: cooperative Orientation: alert Resp Effort & Inspection: normal respiratory effort Objective Labs Result Diagrams: 05/10/21 05:00 Labs: Laboratory Results - last 24 hr 05/10/21 05:00 Hgb 10.4 L Hct 30.4 L PFSH Medical History Chronic back pain (~2014) Fibroids (~1989) Healthy adult Surgical History Anesthesia History of back surgery (~2015) History of carpal tunnel surgery History of section History of tonsillectomy (~1969) History of total right hip arthroplasty (~2016) No pertinent past surgical history Family History Father History of heart disease Hypertension Hyperlipidemia Mother History of heart disease Brother History of heart disease Sister Stroke Grandfather History of heart disease Grandmother History of heart disease Grandfather Cancer Grandmother Cancer Social History household members: spouse Smoking Status: Never smoker alcohol intake: current Discharge Assessment & Plan Assessment and Plan Assessment: Stable Plan of Treatment: Mobilize with PT Anterior hip precautions. DC home today after PT. Discharge Plan Discharge Plan Patient Disposition: Home Discharge orders & Medications Discharge Orders: Discharge (Order); Ordered 05/10/21 Ordered By: Armaan Justin Prescriptions: New oxycodone 5 mg Tablet 10 mg PO Q3HR PRN (Reason: Pain, Severe (7-10)) Qty: 60 0RF acetaminophen 325 mg Tablet 650 mg PO TID Qty: 60 0RF aspirin 81 mg Tablet,Delayed Release (Dr/Ec) 81 mg PO BID Qty: 60 0RF Continued multivitamin [Multiple Vitamins] 1 EACH tablet 1 tab PO QDAY Qty: 0 0RF estradiol 0.025 mg/24 hr patch weekly 1 patch transdermal QWEEK 0RF Label Comments: Weekly patch, on her right buttock progesterone micronized 100 mg capsule 100 mg PO QAM 0RF Rx Instructions: off 7 days; repeat cycle naproxen sodium [Aleve] 220 mg Tablet 1 tab PO PRN PRN (Reason: Back Pain) 0RF Label Comments: patient states takes about every 3 days cholecalciferol (vitamin D3) [Vitamin D3] 25 mcg (1,000 unit) Capsule 25 mcg PO DAILY 0RF biotin 1,000 mcg Tablet,Chewable 1 tab PO DAILY 0RF Discontinued acetaminophen 500 mg Tablet 1,000 mg PO BID PRN (Reason: Pain) 0RF Follow up/Referrals: Hernandez Aj MD [Primary Care Provider] - Cassie Antunez MD [Physician] - (2 wks) Diet/Activity/Treatments Activity: WBAT, anterior hip precautions. Cold/Heat Therapy: ice as needed Skin/Wound/Dressing Care Report to your healthcare provider any signs of infection, such as:: chills, f ever, increased pain, unusual drainage and unusual redness Dressing: keeps dressing clean and dry Visit Report/Discharge Packet Instructions: DI for Hip Replacement Stand Alone Forms: Surgery Discharge Discharge Data Primary Care Provider: Hernandez Aj Attending Provider: Cassie Antunez Quality VTE Deep Vein Thrombosis/Pulmonary Embolism Present on Admission: No
--- NOTE | 2021-05-10 10:31 | PT.IIE ---
Current Diagnoses Unilateral primary osteoarthritis, left hip (05/09/21) Surgery Performed Operation Date: 05/09/21 13:30 Actual Procedures p Total Hip Arthroplasty/Anterior Approach(Left) - Cassie Antunez MD Surgical History (Last Reviewed 05/10/21 @ 10:22 by Armaan Justin PA-C) Anesthesia History of total right hip arthroplasty (~2016) Medical History (Last Reviewed 05/10/21 @ 10:22 by Armaan Justin PA-C) Chronic back pain (~2014) Fibroids (~1989) Healthy adult Physical Therapy Inpatient Evaluation/Re-Eval M1 PT/OT-IP Prior Functional Status Start: 05/10/21 12:31 Freq: NEEDED Status: Active Protocol: Document 05/10/21 10:31 AB (Rec: 05/10/21 12:42 AB [id number]) Medical Review Prior Functional Status Medical History Reviewed Yes Communication able to make needs known Mobility and Gait pt stated that she is indpeendent with all mobilities and ambulation without AD Social History Household Members spouse Living Arrangements House Number of Floors (Floors) One Floor Number of Stairs To Enter/Railing? 1 step to enter Home Environment High Toilet,Walk in Shower Home Equipment Front Wheel Walker,Straight Cane,Shower Seat without Backrest,Hand Held Shower,Grab Bars In Shower Employment Status Retired M2 PT-IP Current Condition Start: 05/10/21 12:31 Freq: NEEDED Status: Active Protocol: Document 05/10/21 10:31 AB (Rec: 05/10/21 12:42 AB [id number]) Physical Therapy Current Condition Current Condition Evaluation Date 05/10/21 Treatment Diagnosis s/p L XI anterior approach; difficulty in walking Onset Date 05/09/21 M3 PT-IP Subjective Start: 05/10/21 12:31 Freq: NEEDED Status: Active Protocol: Document 05/10/21 10:31 AB (Rec: 05/10/21 12:42 AB [id number]) Subjective Physical Therapy Visit Type Type Initial Evaluation Visit Start Time 10:31 Visit Stop Time 11:16 Total Visit Minutes 45 Number of CLOTH PRESSER Visits 0 Physical Therapy Visit Comments Patient Comments agreeable to do PT Therapy Pain Assessment Pain When Pain Assessed At Rest Pain Present Pain Present Pain Reported Location Left Hip Intensity 5 Scale Used Numeric (0 - 10) Pain Management Techniques Distraction,Re-positioning, Timing of Activity with Medications M4 PT-IP Mobility and Gait Start: 05/10/21 12:31 Freq: NEEDED Status: Active Protocol: Document 05/10/21 10:31 AB (Rec: 05/10/21 12:42 AB [id number]) PT-Bed Mobility Assessment Supine to Sit Supine to Sit Standby Assistance Sit to Supine Sit to Supine Standby Assistance PT-Transfer Assessment Sit to and From Stand Sit to and from Stand Standby Assistance,Contact Guard Assistance,1 Person Assistance Equipment Transfer Assistive Device Gait Belt,Front Wheeled Walker Orthotic/Prosthetic Devices or Brace: No Transfers Transfer Destination Chair Transfer Technique ambulated Transfer Ability Level of Assist Standby Assistance,Contact Guard Assistance,1 Person Assistance,Use of Upper Extremities Comments Mobility Comments spouse in room with pt. educated pt and spouse regarding pt's anterior hip precautions. pt able to recall after education. completed supine to sit SBA. able to sit on EOB SBA. completed sit to stand CGA and cues. instructed pt to sit back down. educated on sit to stand techniques and pt completed again requiring CGA. pt repeated 2 more times. completed ambulation in room using FWW ~ 12 ft CGA. pt sat on chair. educated on stair climbing using FWW. pt completed sit to stand from chair SBA and ambulated out in the [facility] ~ 30 ft. completed up/down step using fWW and spouse providing assistance SBA to CGA. pt completed x 2 sets. pt ambulated 60 ft using FWW and then back to her room. sat on EOB. completed sit<> supine SBA and cues. educated on techniques. pt completed sit to stand SBA and transfer to chair sBA using fWW. pt and spouse without further concerns. pt requested to use the toilet. completed sit to stand SBA and ambulated to the toilet using FWW SBA. Left pt in room with spouse. informed nurse that pt is awaiting d/c. Gait Assessment Gait Gait Assistance Required: Standby Assistance,Contact Guard Assist Distance (Feet) 60 Assistive Devices Assistive Device Gait Belt,Front Wheeled Walker Orthotic/Prosthetic Devices or Brace: No Gait Deviations General Gait Pattern Decreased Stride Length, Decreased Feet Clearance Factors Limiting Gait Function Factors Limiting Gait Function Decreased Activity Tolerance, Decreased Strength,Limited Range of Motion,Pain,Poor Balance Stair Climbing Assessment Evaluation Level of Assist On Stairs Standby Assistance,Contact Guard Assistance,1 Person Assistance Devices Stair Climbing Assistive Devices Front Wheel Walker Technique/Endurance Stair Climbing Direction Ascend and Descend Stair Climbing Technique Step to Step Number of Steps Climbed 1 Query Text: Stair Climbing Set # Repetitions (reps) 2 PT-Balance Assessment Sitting Balance and Reactions Static Sitting Balance Ability Good Dynamic Sitting Balance Ability Good Standing Balance and Reactions Static Standing Balance Ability Fair Dynamic Standing Balance Ability Fair Device Used FWW M5 PT-IP Objective Assessments Start: 05/10/21 12:31 Freq: NEEDED Status: Active Protocol: Document 05/10/21 10:31 AB (Rec: 05/10/21 12:42 AB [id number]) Orientation Orientation/Cognition Level of Alertness Alert Orientation Name,Age,Birthday,Month,Date, Year,Day of Week,Place, Situation Language Function Ability No Deficits Noted Safety Awareness Understands Safety Issues Memory Description No Deficits Noted Gross Range of Motion Lower Extremity ROM Assessment Within Functional Limits Strength Lower Extremity Strength Assessment Left Impaired Hip 3+/5 Knee 4/5 Coordination Assessment Gross Coordination Gross Coordination WNL Sensation Assessment Sensation Gross Sensation WNL Muscle Tone Muscle Tone WNL Yes M6 PT-IP Treatment Start: 05/10/21 12:31 Freq: NEEDED Status: Active Protocol: Document 05/10/21 10:31 AB (Rec: 05/10/21 12:42 AB [id number]) Physical Therapy Treatment Education Education Provided Precautions,Weight Bearing Status,Post-Op Packet,Safety M7 PT-IP Assessment and Plan Start: 05/10/21 12:31 Freq: NEEDED Status: Active Protocol: Document 05/10/21 10:31 AB (Rec: 05/10/21 12:42 AB [email or web address]) PT Summary Assessment and Plan Potential Rehabilitation Potential Good Status of Condition at Evaluation Stable Summary Impairments Pain,ROM,Strength,Balance, Coordination,Sensation,Tone, Cognition,Bed Mobility, Transfers,Gait,Activity Tolerance Assessment Summary pt requiring SBA to CGA with mobility and plans to [facility] with spouse to assist her. pt stated that she has outpt scheduled. pt may go home when medically stable. Goals Bed Mobility Goal Independent Transfer Goal Independent,Front Wheeled Walker Gait Goal Independent,Front Wheel Walker Gait Distance 250 Other Goals up/down 1 step using FWW mod I Days to Meet Goals 3 Frequency of Treatment Frequency Of Treatment Twice a Day Treatment Plan Physical Therapy Treatment Plan Bed Mobility Training,Transfer Training,Gait Training, Therapeutic Exercise,Balance Retraining,Post Op Education, Discharge Planning,Hot or Cold Pack,Neuromuscular Re-ed, Coordination Retraining,Manual Therapy Precautions Anterior Hip Precautions No Hip Extension,No Hip External Rotation Weight Bearing Status Weight Bearing Status Weight Bear as Tolerated Allowed Weight Bearing Amount (enter % LLE WBAT or #) (%) Recommendations To Nursing Amount of Assist Needed Standby Assistance Discharge Recommendations PT Discharge Recommendations Home with Assistance, Outpatient PT Transportation Needs at Discharge Private Vehicle
[2021-05-10 11:00] VITALS: BP 111/58; PULSE 74; RESP 20; TEMP 36.8; O2SAT 98
--- NOTE | 2021-05-10 15:47 | PC.NURSE ---
Pt discharged at 1430, escorted off floor in wheelchair, accompanied by spouse and hospital staff. IV removed, discharged teaching completed including follow up appointments, new medications, and signs of infection. Questions answered. Pt left floor with all belongings.
== END 2021-05-10 14:30 | disposition home or self-care (01) ==
LOC: OR 11:26 → AC 11:27
PROVIDERS: Family Provider Family Medicine; PCP Family Medicine; Referring Provider Orthopaedic Surgery; Visit Provider Orthopaedic Surgery
PROC: (CPT 27130; principal; 2021-05-09 13:30)
DX: M16.12 Unilateral primary osteoarthritis, left hip (principal)
CPT/HCPCS: 27130; 36415; 73502; 76000; 85014; 85018; 97161; 97530; C1776; C9290; J0171; J0690; J1170; J2250; J2405; J2704; J3010

== ENCOUNTER → 2021-07-28 11:22 | Outpatient (CLI) | payer MEDICARE, OTHER, SELFPAY ==
[2021-05-09 19:30] VITALS: BMI 27.1
--- NOTE | 2021-07-28 11:23 | DI.US.S_ITS ---
PROCEDURE: US PELVIC COMPLETE INDICATIONS: FOLLOW UP OVARIAN CYST AND THICKENED ENDOMETRIUM TECHNIQUE: Real-time scanning was performed of the pelvic organs, with image documentation. Additional endovaginal scanning was necessary due to incomplete visualization of the adnexal and endometrial structures by transabdominal scanning. COMPARISON: [facility], US, US PELVIC COMPLETE, 03/13/2021, 8:08. FINDINGS: Uterus: Uterus is anteverted and normal in size at 10.4 x 7.9 x 6.5 cm. The myometrium is homogeneous. The endometrium measures 9.6 mm combined thickness. Ovaries: The right ovary measures 6.4 x 4.7 x 6.5 cm. The left ovary measures is not visualized. The ovaries have a normal sonographic appearance. Less than 12 follicles can be seen in each ovary. No adnexal masses are seen. There is an anechoic circumscribed right adnexal cyst which measures 5.1 x 3.7 x 4.6 cm. This measured 5.1 x 3.8 x 5.3 cm on the comparison ultrasound dated March 13, 2021. Other: No pathologic free abdominal or pelvic fluid. IMPRESSION: 1. Stable right adnexal cyst when compared with the study dated March 13, 2021. In a postmenopausal female, annual sonographic surveillance is recommended. 2. Abnormally thickened endometrium in a postmenopausal patient, as before. Differential considerations include hyperplasia and neoplasm. Endometrial biopsy recommended if not already performed. We strive to produce accurate, complete, and clear reports of imaging services. To assist us in improving patient care, this report was composed using standard report templates and voice recognition software. Therefore, it may contain abnormal punctuation, insertions and/or omissions. Occasional wrong-word or sound-alike substitutions may occur. Though we review the report and make efforts to correct it, we do recommend that the report be read carefully in proper context to recognize any text inaccuracies. Dictated by: Marj Verde M.D. on 07/28/2021 at 13:27 Approved by: Marj Verde M.D. on 07/28/2021 at 13:31
== END ==
PROVIDERS: Family Provider Family Medicine; PCP Family Medicine; Referring Provider Specialist; Visit Provider Specialist
DX: R93.89 Abnormal findings on diagnostic imaging of other specified body structures (principal); N83.201 Unspecified ovarian cyst, right side
CPT/HCPCS: 76830; 76856

== ENCOUNTER → 2022-01-26 14:53 | Outpatient (CLI) | payer MEDICARE, OTHER, SELFPAY ==
[2022-01-12 10:42] VITALS: BMI 27.1
[2022-01-26 16:40] LABS: COVID19 -Nasal RAPID Negative (Negative)
== END ==
PROVIDERS: Family Provider Family Medicine; PCP Family Medicine; Visit Provider Obstetrics & Gynecology
DX: Z01.812 Encounter for preprocedural laboratory examination (principal); Z20.822 Contact with and (suspected) exposure to COVID-19
CPT/HCPCS: 87635

== ENCOUNTER → 2022-02-08 11:48 | Outpatient (CLI) | payer MEDICARE, OTHER, SELFPAY ==
[2022-01-12 10:42] VITALS: BMI 27.1
[2022-02-08 12:28] LABS: COVID19 -Nasal RAPID Negative (Negative)
== END ==
PROVIDERS: Family Provider Family Medicine; PCP Family Medicine; Visit Provider Obstetrics & Gynecology
DX: Z01.812 Encounter for preprocedural laboratory examination (principal); Z20.822 Contact with and (suspected) exposure to COVID-19
CPT/HCPCS: 87635

== ENCOUNTER 2022-02-08 12:22 | Day surgery (SDC) | payer MEDICARE, OTHER, SELFPAY ==
[2022-01-12 10:42] VITALS: BMI 27.1
[2022-01-24 08:33] VITALS: BMI 28.2
--- NOTE | 2022-02-08 | PATH_ITS ---
[facility] Accession Number: [id number] . 01 Material submitted: . PART A: endometrium - ENDOMETRIAL POLYPOID TISSUE PART B: endometrium - ENDOMETRIAL CURETTINGS . 01 Diagnosis: A. Endometrial Polypoid Tissue, Biopsy: Fragments with features suggestive of endometrial polyp. Associated weakly proliferative endometrium present. Negative for atypia, hyperplasia or malignancy. . B. Endometrium, Curettings: Weakly proliferative endometrium with stromal breakdown. Negative for atypia, hyperplasia or malignancy. MRV 02/13/2022 1722 Local . 01 Electronically signed: . Maximus Ascencio MD, Pathologist NPI- [id number] . 01 Gross description: . Part A: ENDOMETRIAL POLYPOID TISSUE: Received in formalin are minute fragments of mucoid and hemorrhagic material measuring 2.0 x 0.6 x 0.1 cm in aggregate. Submitted in toto in 1 cassette. Part B: ENDOMETRIAL CURETTINGS: Received in formalin are minute fragments of mucoid and hemorrhagic material measuring 2.5 x 1.2 x 0.1 cm in aggregate. Submitted in toto in 1 cassette. /CPE 02/09/2022 0532 Local . 01 Pathologist provided ICD-10: N95.0 . 01 CPT . 777175, [id number] Specimen Comment: A courtesy copy of this report has been sent to [facility] Performed at: 01 [facility] [address] [place] [address], [place], [place] [id number] MD Asher Rebolledo MD Phone: [phone]
[2022-02-08 13:19] VITALS: BP 161/78; PULSE 72; RESP 16; TEMP 36.2; O2SAT 100; BMI 28.2
[2022-02-08] MEDS: LACTATED RINGERS 1,000 ML 100 ML IV (13:25)
[2022-02-08 13:27] LABS: Add Manual Diff / Slide Review NO; Basophils Absolute Auto 100 /uL (0-100); Basophils Percent Auto 1.1 % (0-2); Eosinophils Absolute Auto 200 /uL (0-450); Eosinophils Percent Auto 2.9 % (2-4); Hematocrit 40.1 % (36-46); Hemoglobin 13.9 g/dL (12.0-16.0); Lymphocytes Absolute Auto 2000 /uL (1100-4500); Lymphocytes Percent Auto 36.1 % (25-40); Mean Corpuscular HGB Conc 34.6 % (30-36); Mean Corpuscular Hemoglobin 33.7 PG (26-34); Mean Corpuscular Volume 97.3 fL (80-100); Monocytes Absolute Auto 400 /uL (0-900); Monocytes Percent Auto 7.2 % (3-14); Neutrophils Absolute Auto 2900 /uL (1500-7000); Neutrophils Percent Auto 52.7 % (50-75); Platelet Count 190 X10^3/uL (150-400); Red Blood Cell Count 4.12 X10^6/uL (4.0-5.2); Red Cell Distribution Width 13.5 % (11.6-14.8); White Blood Cell Count 5.4 X10^3/uL (4.5-11.0)
--- NOTE | 2022-02-08 13:27 | PM.PREOP ---
Pre-operative Note COVID-19 COVID-19 status: Negative Result date/Date tested (Pos, Neg/Pending): 02/08/22 Interval Note History & Physical reviewed/Exam performed by Physician: Yes Changes to H&P: No
[2022-02-08 13:42] LABS: Alanine Aminotransferase 17 IU/L (<35); Albumin 4.4 g/dL (3.5-5.0); Albumin Globulin Ratio 1.5 (1.0-2.8); Alkaline Phosphatase 61 U/L (38-126); Aspartate Aminotransferase 25 IU/L (14-36); BUN Creatinine Ratio 22.2 (6-22); Bilirubin Total 0.7 mg/dL (0.2-1.3); Blood Urea Nitrogen 20 mg/dL (7-17); Calcium 9.1 mg/dL (8.4-10.2); Carbon Dioxide 24 mmol/L (22-32); Chloride 105 mmol/L (98-107); Estimated Glomerular Filt Rate > 60 mL/min (>60); Glucose 93 mg/dL (80-110); HEMOLYSIS 17 (0-50); Potassium 4.3 mmol/L (3.4-5.1); Sodium 138 mmol/L (137-145); Total Protein 7.4 g/dL (6.3-8.2)
--- NOTE | 2022-02-08 14:38 | SUR.OPER ---
Lithotomy on padded OR bed, head on pillow, arms secured on padded arm boards at <90 degrees abduction. Legs secured in padded yellow fins stirrups. Pt positioned per direction and supervision of Dr Jane.
[2022-02-08 14:56] VITALS: BP 157/82; PULSE 68; RESP 16; TEMP 37.1; O2SAT 94
[2022-02-08] MEDS: KETOROLAC 30 MG/ML VIAL 15 MG IV (15:00)
--- NOTE | 2022-02-08 15:00 | PM.OP.1 ---
Operative Date/Time/Diagnoses Date of procedure: 02/08/22 Time of procedure: 14:30 Pre-op diagnosis: Recurrent postmenopausal bleeding. thickened endometrium on ultrasound, on hormone replacement therapy. Post-op diagnosis: same Procedure & Clinicians Procedure: Dilatation and curettage, hysteroscopy, removal of polypoid endometrial tissue Same procedure as scheduled: Yes Indications: 66-year-old female with a recurrent episode of postmenopausal bleeding. She is on hormone replacement therapy. She had a prior benign endometrial biopsy 9 months prior due to endometrial thickening noted on an ultrasound. She had not had postmenopausal bleeding at that time but subsequently a short time later had some spotting. Spotting then resolved. However recently she had a recurrent episode of bleeding which was heavy. She was consented to proceed with repeat evaluation of the endometrium with now proceeding with D&C, hysteroscopy. Surgeon: Stephanie Jane Click Yes if Unassisted: Yes Anesthesia Type: General (LMA) Operative Notes Findings: The endocervical canal appeared normal. The uterine cavity was regular in shape throughout without any masses or fibroids. On inspection of the endometrium, there was some polypoid tissue along her right posterior lower uterus, just past the internal cervical os. This was 3 smooth-walled pink polypoid projections. The areas were removed with polyp forceps. The remainder of the endometrium appeared overall thin and normal in appearance, fairly atrophic. Closure Type: not applicable Specimen(s): other (1. polypoid endometrial tissue 2. endometrial curettings) Estimated Blood Loss (mL): 5 Blood products transfused: none Procedure in detail: After informed consent was obtained, the patient was taken to the operating room. After general anesthesia was induced, bimanual examination was performed and she was prepped and draped in the usual sterile fashion. A speculum was inserted into the vagina. The cervix was easily visualized and grasped with a tenaculum. The cervix was dilated to 7mm with serial alexis dilators. The uterine length sounded to 9 cm. A diagnostic hysteroscope was inserted with normal saline solution used as the uterine distention medium. On inspection with the hysteroscope, the above findings were noted. The hysteroscope was removed and polyp forceps were then used and directed to the area of polypoid endometrium. With a few passes, small polypoid pieces of tissue were obtained and were placed on Telfa for pathology. After no further fragments were obtained, the hysteroscope was again placed. Inspection revealed removal of the polypoid area. A sharp curette was placed and curettage was performed throughout the uterine cavity with removal of a small amount of tissue and some clot. The tenaculum was removed. There was light bleeding at her right tenaculum site which ceased after application of pressure and silver nitrate. Good hemostasis was then noted, and the speculum removed. The patient was transferred to the PACU in stable condition. Complications: none Post-operative Condition: stable Disposition: PACU Plan for aftercare: Discharge home. F/u appt in the office
[2022-02-08 15:01] VITALS: BP 164/87; PULSE 60; RESP 14; O2SAT 93
[2022-02-08 15:07] VITALS: BP 153/87; PULSE 58; RESP 18; O2SAT 93
[2022-02-08 15:18] VITALS: BP 151/90; PULSE 56; RESP 18; TEMP 37; O2SAT 94
== END 2022-02-08 15:32 | disposition home or self-care (01) ==
PROVIDERS: Family Provider Family Medicine; PCP Family Medicine; Referring Provider Obstetrics & Gynecology; Visit Provider Obstetrics & Gynecology
PROC: 0UDB8ZZ Extraction of Endometrium, Via Natural or Artificial Opening Endoscopic (ICD-10-PCS; CPT 58558; principal; 2022-02-08 13:30)
DX: N95.0 Postmenopausal bleeding (principal); Z20.822 Contact with and (suspected) exposure to COVID-19; Z01.812 Encounter for preprocedural laboratory examination
CPT/HCPCS: 58558; 80053; 85025; 86850; 86900; 86901; 87635; C9803; J1885; J2405; J2704; J3010

== ENCOUNTER → 2022-03-02 07:45 | Outpatient (CLI) | payer MEDICARE, OTHER, SELFPAY ==
[2022-01-12 10:42] VITALS: BMI 27.1
--- NOTE | 2022-03-02 07:46 | DI.US.S_ITS ---
PROCEDURE: US PELVIC COMPLETE INDICATIONS: RIGHT OVARIAN CYST FOLLOW UP TECHNIQUE: Real-time scanning was performed of the pelvic organs, with image documentation. Additional endovaginal scanning was necessary due to incomplete visualization of the adnexal and endometrial structures by transabdominal scanning. COMPARISON: [facility] [place], CR, XR PELVIS WITH LATERAL HIP LEFT, 08/09/2021, 9:37. [facility], , US PELVIC COMPLETE, 07/28/2021, 12:32. FINDINGS: Uterus: Uterus is anteverted and normal in size at 9.6 x 8.2 x 7.6 cm. The myometrium is heterogeneous. The endometrium measures 5 mm combined thickness. (previously 10 mm). Right anterior subserosal fibroid measuring 5 x 4.7 x 4.1 cm. Ovaries: The right ovary measures 8.2 x 7.1 x 5.8 cm, with a calculated ovarian volume of 178 cc. Blood flow is seen in the right ovary. Large right ovarian anechoic cyst measuring 7.5 x 6.6 x 5.1 cm. (Previously 5.1 x 4.6 x 3.7 cm). Left ovary is not well seen. Other: No pathologic free abdominal or pelvic fluid. IMPRESSION: 1. Endometrium measures 5 mm in thickness in this postmenopausal patient. 2. Subserosal fibroid measuring 5 cm. 3. Large right ovarian anechoic cyst measuring 7.5 cm is increased in size. Pelvic MRI with IV contrast could be considered for further evaluation. We strive to produce accurate, complete, and clear reports of imaging services. To assist us in improving patient care, this report was composed using standard report templates and voice recognition software. Therefore, it may contain abnormal punctuation, insertions and/or omissions. Occasional wrong-word or sound-alike substitutions may occur. Though we review the report and make efforts to correct it, we do recommend that the report be read carefully in proper context to recognize any text inaccuracies. Dictated by: Curt Granados M.D. on 03/02/2022 at 9:21 Approved by: Curt Granados M.D. on 03/02/2022 at 9:30
== END ==
PROVIDERS: Family Provider Family Medicine; PCP Family Medicine; Referring Provider Obstetrics & Gynecology; Visit Provider Obstetrics & Gynecology
DX: N83.201 Unspecified ovarian cyst, right side (principal); D25.2 Subserosal leiomyoma of uterus
CPT/HCPCS: 76830; 76856; 93976

== ENCOUNTER 2022-03-23 06:42 | Day surgery (SDC) | payer MEDICARE, OTHER, SELFPAY ==
[2022-01-12 10:42] VITALS: BMI 27.1
[2022-03-21 09:58] VITALS: BMI 28.8
[2022-03-23] VITALS (9 sets, daily range): BP systolic 124–135; BP diastolic 66–80; PULSE 56–90; RESP 12–20; TEMP 36.1–36.9; O2SAT 93–98; BMI 28.8
--- NOTE | 2022-03-23 | PATH_ITS ---
[facility] Accession Number: [id number] No. of containers..02 Tissue . 01 Material submitted: . PART A: fallopian tube - LEFT FALLOPIAN TUBE AND OVARY PART B: fallopian tube - RIGHT FALLOPIAN TUBE AND OVARY . 01 Clinical history: . BILATERAL LAPAROSCOPIC OOPHORECTOMY . 01 Diagnosis: A. Left Fallopian Tube and Ovary, Left Salpingo-Oophorectomy: Fallopian tube with hydrosalpinx. Ovary with benign simple-lined epithelial cysts. No evidence of neoplasia, dysplasia, or malignancy. . B. Right Fallopian Tube and Ovary, Right Salpingo-Oophorectomy: Ovarian serous cystadenofibroma (see microscopic description). Fallopian tube with hydrosalpinx. No evidence of dysplasia, borderline tumor, or malignancy. [facility] 04/03/2022 1207 Local . 01 Electronically signed: . Briana Pickering MD, Pathologist NPI- [id number] . 01 Gross description: . A. Received in formalin, labeled with the patient's name, , and left fallopian tube and ovary, and consists of a fimbriated fallopian tube measuring 4.5 x 0.6 cm with attached ovary weighing less than 1 g and measuring 2.2 x 1.2 x 1.0 cm. The fallopian tube has huertas, smooth serosa with multiple cystic structures measuring up to 0.7 cm in greatest dimension, filled with clear serous fluid. The lumen narrows possibly consistent with previous tubal ligation. Sectioning reveals a discontinuous stellate lumen with no lesions identified. The ovary has a huertas cerebriform external surface. Sectioning reveals an unremarkable physiologic cut surface with no lesions or cysts identified. The specimen is submitted entirely as follows: A1-A3: Entire fallopian tube. A4-A5: Entire ovary. B. Received in formalin, labeled with the patient's name, , and right fallopian tube and ovary, and consists of a fimbriated fallopian tube measuring 4.3 x 0.6 cm attached to a slightly disrupted cystic structure measuring 6.2 x 5.5 x 3.6 cm. The external surface is inked blue. The fallopian tube has huertas, smooth serosa with multiple cystic structures measuring up to 0.6 cm in greatest dimension, filled with cloudy serous fluid. The lumen appears grossly incomplete, possibly consistent with previous tubal ligation. Sectioning reveals a discontinuous stellate lumen. The cyst contains clear serous fluid. No areas of puckering are grossly identified on the external surface. The internal surface is congested to huertas with a small cluster of excrescences measuring 0.5 x 0.4 cm and areas of huertas thickening measuring up to 4.0 cm in greatest dimension occupying approximately 40% of the internal surface. The bowen average 0.1 cm thick. No normal parenchyma is grossly identified. There are no additional excrescences, and additional sections to include a majority of the second areas are submitted in cassettes B7-B11. Autographer sections are submitted as follows: B1-B3: Entire fallopian tube. B4-B6: Autographer cyst with excrescences in cassette B4. ([id number]) B7-B11: Additional ovarian cyst sections /FRR 04/03/2022 1153 Local . 01 Microscopic: . In block B4 only, a small papillae lined by single-lined proliferative epithelium is noted and deeper sections are examined. Although rare mitotic figures are seen, there is no second-degree order branching, complexity, or detachment of clusters. No psammomatous calcifications are seen or significant cytologic atypia. These changes are deemed within the spectrum of changes allowed in benign serous tumors, rather than focal proliferative change. Clinical correlation is necessary. . 01 Pathologist provided ICD-10: D27.9 . 01 CPT . 624882, [id number] Specimen Comment: A courtesy copy of this report has been sent to [phone] Performed at: 01 [facility] [address] [place] [address] [address], [place], [place] [id number] MD Asher Rebolledo MD Phone: [phone]
[2022-03-23] MEDS: LACTATED RINGERS 1,000 ML 42 ML IV (07:25)
--- NOTE | 2022-03-23 07:47 | SUR.OPER ---
Lithotomy on padded OR bed, head on pillow, arms padded and tucked at sides. Legs secured in padded yellow fins stirrups.
--- NOTE | 2022-03-23 08:54 | PM.PREOP ---
Pre-operative Note COVID-19 Criteria for continued procedure: Non-surgical alternatives not available or appropriate per current SOC Interval Note History & Physical reviewed/Exam performed by Physician: Yes Changes to H&P: No
[2022-03-23] MEDS: BUPIVACAINE 0.5% W/ EPI (PF) 30 ML VIAL INJ (09:21)
--- NOTE | 2022-03-23 10:15 | P.OP_ITS ---
Operative Date/Time/Diagnoses Date of procedure: 03/23/22 Time of procedure: 08:30 Pre-op diagnosis: Right ovarian cyst Post-op diagnosis: same Procedure & Clinicians Procedure: Procedures Operation Date: 03/23/22 07:45 Actual Procedure Side Surgeon p Laparoscopic Salpingo-oophorectomy Bilateral José Miguel Lopez MD Indications: Le is approximately 4 weeks status post hysteroscopy with D&C for postmenopausal bleeding.? Pathology showed fragments with features suggestive endometrial polyp and associated weakly proliferative endometrium negative for atypia, hyperplasia, or malignancy.? Patient has stopped bleeding following her surgery and voices no complaints.? Patient however had a follow-up ultrasound due to a previously diagnosed right ovarian cyst.? Previous CA 125 and HE4 levels are negative.? Her most recent ultrasound performed 03/02/2022 shows: FINDINGS:? ?? Uterus:? Uterus is anteverted and normal in size at 9.6 x 8.2 x 7.6 cm. The myometrium is heterogeneous. ? The endometrium measures 5 mm combined thickness.? (previously 10 mm).? Right anterior subserosal fibroid measuring 5 x 4.7 x 4.1 cm. ? Ovaries:? The right ovary measures 8.2 x 7.1 x 5.8 cm, with a calculated ovarian volume of 178 cc.? Blood flow is seen in the right ovary. Large right ovarian anechoic cyst measuring 7.5 x 6.6 x 5.1 cm.? (Previously 5.1 x 4.6 x 3.7 cm). ? Left ovary is not well seen.? ? Other:? No pathologic free abdominal or pelvic fluid. ?? IMPRESSION:? 1. Endometrium measures 5 mm in thickness in this postmenopausal patient. ? 2. Subserosal fibroid measuring 5 cm. ? 3. Large right ovarian anechoic cyst measuring 7.5 cm is increased in size. ? Pelvic MRI with IV contrast could be considered for further evaluation. Patient remains asymptomatic insofar as the right ovarian cyst but she is becoming increasingly anxious about the possibility that this may be an occult malignancy and since it does show continued slight enlargement and she is understandably concerned despite the negative tumor markers.? After discussion regarding all options, the patient has opted for moving forward with laparoscopic bilateral salpingo oophorectomy.? She presents today for her scheduled surgery. Surgeon: José Miguel Lopez Anesthesia Type: General Operative Notes Findings: Uterus is upper limit size with 5 cm subserosal fibroid noted in the area of the right cornua. The left ovary and fallopian tube are normal. The right ovary is enlarged to approximately 6 cm in diameter with a smooth, glistening surface. The cyst itself contains clear fluid and no nodularity on the inner surface when examined after removal. The entire ovary was removed intact and there was no spillage of contents intra-abdominally. The upper abdomen is normal to laparoscopic visualization. Closure Type: primary Specimen(s): left tube & ovary and right tube & ovary Estimated blood loss (mL): 10 Blood products transfused: none Procedure in detail: With the patient under satisfactory general anesthesia in the modified dorsal lithotomy position, perineum, vagina, and abdomen were prepped and draped in the usual fashion for laparoscopy. A pre-surgical safety time-out was then taken in accordance with [facility] OR protocols. The skin of the inferior umbilicus was then infiltrated with 0.5% Marcaine and 2-1/2 cm vertical umbilical incision was made and carried down to the deep fascia. The deep fascia was then incised transversely and stay sutures of 0 Vicryl were placed at each end. The peritoneum was then entered under direct vision and a Zavala cannula was placed through the peritoneal defect. The abdomen was insufflated with carbon dioxide and once insufflation was accomplished, scope was placed through the sleeve and confirmation of the trocars presence in the abdominal cavity confirmed. At that point a 2nd and 3rd 5 mm port was placed on either the right and left mid quadrants in the usual manner and using a 3 puncture technique, the pelvis and abdomen were inspected with the findings as noted above. A distal tube on the right was then grasped with a grasping forceps been elevated. The infundibulopelvic ligament was then coagulated with a PowerSeal device and the dissection was carried across the mesosalpinx to the utero- ovarian ligament which was then coagulated and divided. Both the fallopian tube and ovary on the right side were then secured and attention turned to the left adnexa. The distal left fallopian tube was then grasped with a grasping forceps an elevated. Power Seal device was then used to coagulate and divide the infundibulopelvic ligament on the left side and the dissection was carried out in a similar manner to that on the right side across the mesosalpinx to the cornu where the utero-ovarian ligament and proximal tube were amputated with the PowerSeal device. The specimens were then retrieved through a large Endo-Catch and brought up through the umbilical incision. Inspection of all pedicles showed they were completely hemostatic and there were no other abnormalities visible in the abdominal cavity. That point the pneumoperitoneum was then vented and the umbilical incision fascia was closed with 0 Vicryl interrupted. The skin incisions were all then closed with 4-0 Monocryl using inverted interrupted stitches and skin glue was applied. Appropriate dressing was then applied, patient awakened from surgery, and transferred to the PACU for a period of observation and recovery after having tolerated the procedure well. Complications: none Post-operative Condition: stable Disposition: PACU Plan for aftercare: Routine post-op care.
[2022-03-23] MEDS: OXYCODONE/ACETAMINOPHEN 5/325 TABLET 1 TAB PO (10:38)
== END 2022-03-23 11:10 | disposition home or self-care (01) ==
PROVIDERS: Family Provider Family Medicine; PCP Family Medicine; Referring Provider Obstetrics & Gynecology; Visit Provider Obstetrics & Gynecology
PROC: 0UT24ZZ Resection of Bilateral Ovaries, Percutaneous Endoscopic Approach (ICD-10-PCS; CPT 58661; principal; 2022-03-23 07:45)
DX: D27.0 Benign neoplasm of right ovary (principal); D25.2 Subserosal leiomyoma of uterus; N70.11 Chronic salpingitis
CPT/HCPCS: 58661; J1100; J1885; J2250; J2405; J2704; J3010